=== PATIENT | male | born 1960 | race African-American/Black ===

== ENCOUNTER 2017-04-20 14:47 | Outpatient (CLI) | payer OTHER ==
--- NOTE | 2017-04-20 16:23 | RAD ---
LEFT HIP TWO VIEWS: History: Left hip pain, no injury. Comparison: None. FINDINGS: No acute fracture or malalignment. Dense vascular calcifications. Mild enthesopathic changes of the greater trochanter. IMPRESSION: No acute fracture or malalignment. POS: DAYAN
== END 2017-04-20 14:48 | disposition home or self-care (01) ==
LOC: NAV RAD 14:47
PROVIDERS: ATTEND Internal Medicine
DX: M25.552 Pain in left hip (principal)

== ENCOUNTER 2017-06-03 09:44 | Outpatient (CLI) | payer OTHER ==
--- NOTE | 2017-06-03 13:36 | CT ---
CT LEFT LOWER EXTREMITY WITHOUT CONTRAST: Date: 06/03/17 HISTORY: Left hip pain. No recent injury. Old sports injuries. COMPARISON: Hip radiographs dated 04/20/17. FINDINGS: Dense calcification of prostate. Mild thickening of the posterior wall of urinary bladder. No free f luid in the pelvis. Muscle bulk appears normal of the thigh. A few reactive external iliac and inguinal lymph nodes. Moderate degenerative disease of the pubic symphysis with narrowing of the symphyseal space with ost eophyte formation and subchondral sclerosis. Mild enthesopathic changes of the left hamstring tendon s. There is osteophyte formation of the superior and posterior labrum. There are fiber osseous cysts of left femoral head/neck junction. Mild enthesopathic changes of left gluteus medius tendon insert ion of the greater trochanter. No acute fracture is appreciated. Mild atherosclerotic plaque. IMPRESSION: 1. Acetabular osteophyte formation with some left femoral head/neck fibro-osseous cyst formation li lori sequelae of impingement. 2. Extensive pubic symphyseal osteoarthritic disease. 3. Mild enthesopathic changes. 4. No acute fracture of malalignment. 5. Bridging osteophyte formation of the anterior SI joint. POS: OFF
== END 2017-06-03 09:45 | disposition home or self-care (01) ==
LOC: NAV CT 09:44
PROVIDERS: ATTEND Internal Medicine
DX: M25.552 Pain in left hip (principal); M16.12 Unilateral primary osteoarthritis, left hip; M25.752 Osteophyte, left hip; M85.652 Other cyst of bone, left thigh; M76.9 Unspecified enthesopathy, lower limb, excluding foot

== ENCOUNTER 2017-12-21 13:11 | Outpatient (CLI) | payer OTHER ==
[2017-12-21 13:49] LABS: #Basophils 0.3 thou/uL (0.0-0.2); #Lymphocytes 4.4 thou/uL (1.20-3.40); #Monocytes 1.2 thou/uL (0.11-0.59); #Neutrophils 7.9 thou/uL (1.40-6.50); %Basophils 2.4 % (0.0-1.0); %Eosinophils 0.1 % (0.0-10.0); %Lymphocytes 31.7 % (21.0-51.0); %Monocytes 8.7 % (0.0-10.0); %Neutrophils 57.1 % (42.0-75.0); Hemoglobin 10.7 g/dL (14.0-18.0); Mean Corpuscular Volume 87.5 fl (80.0-94.0); Mean Platelet Volume 7.5 fL (7.4-10.4); Platelet Count 244 thou/uL (130-400); RBC Distribution Width 13.3 % (11.5-14.5); Red Blood Cell (RBC) Count 3.82 mill/uL (4.70-6.10); White Blood Cell (WBC) Count 13.8 thou/uL (4.8-10.8)
== END 2017-12-21 13:12 | disposition home or self-care (01) ==
LOC: NAV LAB 13:11
PROVIDERS: ATTEND Internal Medicine
DX: R58 Hemorrhage, not elsewhere classified (principal)
CPT/HCPCS: 36415; 85025

== ENCOUNTER 2017-12-22 10:05 | Outpatient (CLI) | payer OTHER ==
[2017-12-22 10:39] LABS: #Basophils 0.1 thou/uL (0.0-0.2); #Lymphocytes 4.3 thou/uL (1.20-3.40); #Monocytes 1.3 thou/uL (0.11-0.59); #Neutrophils 6.7 thou/uL (1.40-6.50); %Basophils 0.8 % (0.0-1.0); %Eosinophils 0.4 % (0.0-10.0); %Lymphocytes 34.4 % (21.0-51.0); %Monocytes 10.6 % (0.0-10.0); %Neutrophils 53.8 % (42.0-75.0); Hemoglobin 10.1 g/dL (14.0-18.0); Mean Corpuscular HGB CONC 31.7 g/dL (32.0-36.0); Mean Corpuscular Hemoglobin 27.7 pg (27.0-31.0); Mean Corpuscular Volume 87.4 fl (80.0-94.0); Mean Platelet Volume 7.8 fL (7.4-10.4); Platelet Count 223 thou/uL (130-400); Red Blood Cell (RBC) Count 3.67 mill/uL (4.70-6.10); White Blood Cell (WBC) Count 12.4 thou/uL (4.8-10.8)
== END 2017-12-22 10:06 | disposition home or self-care (01) ==
LOC: NAVSJIPCSP 10:05
PROVIDERS: ATTEND Internal Medicine
DX: D64.9 Anemia, unspecified (principal)
CPT/HCPCS: 36415; 85025

== ENCOUNTER 2017-12-26 09:47 | Outpatient (CLI) | payer OTHER ==
--- NOTE | 2017-12-26 12:17 | ULT ---
BLADDER ULTRASOUND: History: Prostatitis syndrome. Comparison: None. Technique: Sagittal and transverse imaging of the urinary bladder was performed pre and post voiding. FINDINGS: Bladder mucosa is unremarkable. Based on the transverse imaging, bladder mucosa thickness is approxim ately 0.65 cm. Focal bladder mass is not appreciated. Cystoscopy is recommended if there is concern. Pre void volume is 80 ml. Post void volume is 2 ml. IMPRESSION: 1. Limited evaluation of bladder mucosa due to inadequate distention. Mucosal wall thickness is accep table for this degree of urinary bladder volume. If there is concern for focal mass, consider cystosc opy. 2. No significant post void residual. POS: OFF
[2017-12-26 20:35] LABS: #Basophils 0.1 thou/uL (0.0-0.2); #Eosinphils 0.4 thou/uL (0.0-0.7); #Lymphocytes 4.1 thou/uL (1.20-3.40); #Monocytes 1.5 thou/uL (0.11-0.59); #Neutrophils 6.1 thou/uL (1.40-6.50); %Basophils 0.9 % (0.0-1.0); %Eosinophils 3.2 % (0.0-10.0); %Monocytes 11.9 % (0.0-10.0); Hemoglobin 10.7 g/dL (14.0-18.0); Mean Corpuscular HGB CONC 34.1 g/dL (32.0-36.0); Mean Corpuscular Hemoglobin 30.7 pg (27.0-31.0); Mean Platelet Volume 7.8 fL (7.4-10.4); Platelet Count 312 thou/uL (130-400); RBC Distribution Width 14.1 % (11.5-14.5); Red Blood Cell (RBC) Count 3.47 mill/uL (4.70-6.10); White Blood Cell (WBC) Count 12.1 thou/uL (4.8-10.8)
== END 2017-12-26 09:48 | disposition home or self-care (01) ==
LOC: NAV ULT 09:47
PROVIDERS: ATTEND Internal Medicine
DX: N42.82 Prostatosis syndrome (principal)
CPT/HCPCS: 76856; 85025; 87086